=== PATIENT | male | born 1950 | race Caucasian/White ===

== ENCOUNTER → 2024-08-03 13:18 | Outpatient (REF) | payer MEDICARE, SELFPAY | LOC: RAD 13:18 | PROVIDERS: ATTENDING PHYSICIAN Family Medicine; FAMILY PHYSICIAN Family Medicine | DX: M81.0 Age-related osteoporosis without current pathological fracture (principal) | CPT/HCPCS: 77080 ==

== ENCOUNTER 2025-03-17 23:42 | Emergency (ER) | payer MEDICARE, SELFPAY ==
[2025-03-17 23:45] VITALS: BP 151/110
[2025-03-18 01:00] VITALS: BP 147/73
[2025-03-18 01:27] VITALS: BMI 24.9
--- NOTE | 2025-03-18 01:36 | ED.GENMED ---
History of Present Illness
General
Chief Complaint: Eye Problems
Source: patient
Time Seen by Provider: 03/18/25 01:03
History of Present Illness
History of Present Illness:
Note:
CHIEF COMPLAINT(S)
Foreign body sensation in the left eye.
HISTORY OF PRESENT ILLNESS
The patient is a 74-year-old male who presents with a sensation of a foreign body in the left eye. The patient reports this sensation began earlier today at approximately 12:30 pm. He describes the feeling as uncomfortable and has attempted to
irrigate the eye with saline with no relief. The patient notes the eye is red, but denies light sensitivity or visual changes. There is no recent history of stirring up dust or particles, nor any recent trauma identified. The patient uses both
glasses and contact lenses but was not wearing contacts at the time of symptom onset.
Past History
Past History
ED Past Medical History: HTN, NIDDM and Psychiatric
ED Past Surgical History: Appendectomy, Tonsilectomy and Other (Hernia repair )
Social History
Tobacco: Smoker (E. cigarette)
Alcohol: Former
Drug: None
Personal:
Living: with family
Employment: Employed
Family History
Family History: CAD (Uncle) and Other (His father had colon polyps)
Review of Systems
Review of Systems
All Other Systems: ROS reviewed and negative except as documented in HPI and ROS
Phy Exam
Physical Exam
Physical Exam:
GENERAL: Alert , in no apparent distress
EYE: conjunctiva clear injected, clear tearing/discharge note, pupils 4 mm bilateral, EOMI, no proptosis, no periorbital erythema or edema
FLUORESCEIN STAIN: Uptake at the 2 o'clock position of the iris measuring 2 mm in size, no foreign body
Tonometry measurement: 14 in the left eye
Visual acuity: Right eye 20/40, Left eye 20/50, both eyes 20/40
Head: Normocephalic atraumatic
NECK: Supple,
ENT: mmm.
LUNGS: no acute respiratory distress
NEUROLOGICAL: Alert and oriented
SKIN: Warm and dry, skin intact.
MUSCULOSKELETAL: well perfused.
PSYCH: Normal and appropriate interaction.
Scores
Heart Failure Risk
Heart Failure Risk Score: Not Applicable
Heart Score for Chest Pain Patients
STEMI patient?: Not applicable
Withdrawal Assessment of Alcohol
Withdrawal Assessment Completed?: Not applicable
Course
Orders/Labs/Results
Orders:
Orders
03/18/25 01:33
Fluorescein Sodium [Ful-Nela] 2 mg .ROUTE .STK-MED ONE
Tetracaine HCl [Tetracaine 0.5% Ophthalmic Solution] 1 drop .ROUTE .STK-MED ONE
03/18/25 01:36
Visual Acuity- Treatment ONCE
Vital Signs
Initial and Last Documented VS:
Initial Vital Signs
Temp Pulse Resp BP Pulse Ox
98 F 123 20 151/110 98
03/17/25 23:45 03/17/25 23:45 03/17/25 23:45 03/17/25 23:45 03/17/25 23:45
Last Documented Vital Signs
Temp Pulse Resp BP Pulse Ox
98 F 74 18 147/73 99
03/17/25 23:45 03/18/25 01:00 03/18/25 01:00 03/18/25 01:00 03/18/25 01:36
MDM/Problems Addressed
Differential Diagnosis Includes:
The Differential Diagnosis includes, in no particular order and is not limited to:
1. Corneal abrasion
2. Foreign body in the eye
3. Conjunctivitis
4. Corneal ulcer
5. Acute glaucoma
6. Allergic conjunctivitis
7. Keratitis
8. Dry eye syndrome
9. Uveitis
10. Episcleritis
MDM/Problems Addressed:
The patient will be discharged with antibiotic eye drops, with instructions clearly outlined on discharge papers. The patient is advised to avoid using contact lenses until cleared by an community relations officer. Follow-up care with an community relations officer is
advised to monitor for potential corneal ulcers, despite none being present currently. The patient is instructed to use lubricating drops and keep the eyelid closed as much as possible to minimize irritation. If symptoms worsen, such as increased
pain or vision changes, he is advised to seek immediate medical attention.
*Pulse Oximetry
SaO2: 99
Oxygen Mode of Delivery: Room air
Patient hypoxic: no
*Critical Care Note
Total Time (30-74mins, 75-104mins- exclusive of procedures): Not Applicable
ED Attending Note
-
Portions of this chart may have been created with voice recognition software.� Occasional wrong word or��sound alike� substitutions may have occurred due to the inherent limitations of voice recognition software.
Discharge Plan
Departure
Patient Disposition: Home (Routine Discharge)
Date of Disposition: 03/18/25
Time of Disposition: 01:36
Patient with high blood pressure during this ER visit?: Yes
Discharge Problem:
Injury of conjunctiva and corneal abrasion of left eye w/o FB
Instructions: Corneal Abrasion (DC)
Prescriptions:
New
ofloxacin [Ocuflox] 0.3 % drops
2 drp ophthalmic (eye) QID 5 Days Qty: 10 0RF
No Action
lisinopril [Zestril] 40 MG tablet
40 mg PO DAILY
bupropion HCl 300 MG tablet extended release 24 hr
300 mg PO DAILY
testosterone [AndroGel] 1.25 GM gel in packet
1.25 gm TD DAILY
dapaglifloz propaned-metformin [Xigduo XR] 1 EACH tablet, IR - ER, biphasic 24hr
2 ea PO DAILY
polyethylene glycol 3350 17 GRAMS powder in packet
17 grams PO DAILYPRN PRN (Reason: constipation) Qty: 1 0RF
acetaminophen [Tylenol Extra Strength] 500 MG tablet
1,000 mg PO Q6HPRN PRN (Reason: mild pain) Qty: 1 0RF
ibuprofen 200 MG tablet
400 - 600 mg PO Q6HPRN PRN (Reason: moderate pain) Qty: 1 0RF
oxycodone 5 MG tablet
5 mg PO Q4HPRN PRN (Reason: breakthrough/severe pain) Qty: 10 0RF
diltiazem HCl 120 MG capsule,extended release 24hr
120 mg PO DAILY Qty: 30 3RF
Referrals:
Bertram Quna MD [Family Provider, Family Practice]
Giovana Antoine MD [Active, Ophthalmology]
Referral Note: Ophthalmology
Interventions
Interventions:
*Risk Screen - Suicide Last Done: 03/17/25 23:45
*General Assessment Last Done: 03/17/25 23:45
*Neglect/Abuse Screening Last Done: 03/17/25 23:45
*ED- Fall Risk Assessment Last Done: 03/17/25 23:45
*ED COVID-19 Vaccine History Last Done: 03/17/25 23:45
*Nursing Disposition Last Done: 03/18/25 01:40
Discharge Date and Time
Discharge Date/Time: 03/18/25 02:00
Print Language: ROMANIAN
== END 2025-03-18 02:00 | disposition home or self-care (01) ==
LOC: EMR 23:42
PROVIDERS: EMERGENCY PHYSICIAN Emergency Medicine; FAMILY PHYSICIAN Family Medicine
DX: S05.02XA Injury of conjunctiva and corneal abrasion without foreign body, left eye, initial encounter (principal); X58.XXXA Exposure to other specified factors, initial encounter; I10 Essential (primary) hypertension; E11.9 Type 2 diabetes mellitus without complications; F17.210 Nicotine dependence, cigarettes, uncomplicated; Z82.49 Family history of ischemic heart disease and other diseases of the circulatory system; Z83.719 Family history of colon polyps, unspecified; Z90.49 Acquired absence of other specified parts of digestive tract
CPT/HCPCS: 99282

== ENCOUNTER → 2025-05-09 16:46 | Outpatient (REF) | payer MEDICARE, SELFPAY | LOC: RAD 16:46 | PROVIDERS: ATTENDING PHYSICIAN Family Medicine | DX: I51.7 Cardiomegaly (principal); R42 Dizziness and giddiness; R53.83 Other fatigue | CPT/HCPCS: 71046 ==